=== PATIENT | female | born 1935 | race Caucasian/White ===

== ENCOUNTER 2018-08-11 12:59 | Inpatient (IN) ==
[2018-08-11] MEDS ORDERED: SODIUM CHLORIDE 0.9% 1,000 ML IV STA (13:38)
[2018-08-11] MEDS ORDERED: ONDANSETRON 4 MG/2 ML VIAL IV STA (13:38)
[2018-08-11] MEDS ORDERED: HYDROmorphone 2 MG/1 ML VIAL IV STA (13:38)
[2018-08-11 14:04] LABS: Basophils % 0.3 % (0.0-0.8); Eosinophils # 0.2 10*3/uL (0.0-0.87); Eosinophils % 1.3 % (0.00-10.9); Hematocrit 42.1 VOL% (35.7-47.0); Hemoglobin 13.2 GM/DL (12.0-16.0); Immature Granulocytes % 0.3 %; Immature Granulocytes Absolute 0.04 #; Lymphocytes # 2.3 10*3/uL (1.4-4.0); Lymphocytes % 18.1 % (21.3-54.2); Mean Corpuscular HGB Conc 31.4 GM/DL (32-36); Mean Corpuscular Hemoglobin 28 PG (27-34); Mean Corpuscular Volume 88.4 FL (87-102); Mean Platelet Volume 9.6 FL (9.6-12.0); Monocytes # 1.2 10*3/uL (0.11-0.8); Monocytes % 9.9 % (1.7-12.7); Neutrophils # 8.8 10*3/uL (1.4-7.4); Neutrophils % 70.1 % (38.7-73.9); Platelet Count 396 T/CUMM (130-400); Red Blood Count 4.76 MC/CUMM (3.8-5.5); Red Cell Distribution Width 13.6 % (9.3-17.3); White Blood Count 12.5 T/CUMM (4-12)
[2018-08-11 14:27] LABS: Alanine Aminotransferase 22 U/L (13-56); Albumin 2.7 G/DL (3.4-5.0); Alkaline Phosphatase 128 U/L (45-117); Aspartate Amino Transferase 27 U/L (0-37); Bilirubin,Total < 0.39 MG/DL (0.2-1.0); Blood Urea Nitrogen 14 MG/DL (7-18); Calcium 9.2 MG/DL (8.5-10.1); Glucose 106 MG/DL (74-106); Lactic Acid 1.3 MMOL/L (0.4-2.0); Potassium 4.3 MMOL/L (3.5-5.1); Sodium 136 MMOL/L (136-145); Total Protein 7.3 G/DL (6.4-8.3)
[2018-08-11 14:42] LABS: Apearance,Urine CLEAR (Clear); Bilirubin,Urine Negative (Negative); Blood, Urine Small mg/dL (Negative); Glucose,Urine (UA) Negative (Negative); Ketones,Urine 5 mg/dL (Negative); Mucus,Urine Many /LPF (Occasional); Nitrite,Urine Negative (Negative); Protein,Urine 100 MG/DL; RBC,Urine 5 /HPF (0-4); Squamous Epithelial Cell,Urine Occasional /HPF (0-10); Urine Color Amber (Yellow); Urine Specific Gravity 1.023 (1.001-1.035); WBC,Urine 2 /HPF (0-6)
[2018-08-11] MEDS ORDERED: ACETAMINOPHEN 325 MG TABLET PO PRN (16:31)
[2018-08-11] MEDS ORDERED: ONDANSETRON 4 MG/2 ML VIAL IV PRN (16:31)
[2018-08-11] MEDS ORDERED: ALBUTEROL/IPRATROPIUM 3 ML NEB RESP TX PRN (16:56)
[2018-08-11] MEDS: SODIUM CHLORIDE 0.9% 1,000 ML IV SCH (17:30)
[2018-08-11] MEDS ORDERED: MORPHINE 4 MG/1 ML VIAL IV PRN (17:34)
[2018-08-12] MEDS: SODIUM CHLORIDE 0.9% 1,000 ML IV SCH ×2 (03:29→16:46)
[2018-08-12 05:10] LABS: Basophils % 0.3 % (0.0-0.8); Eosinophils # 0.2 10*3/uL (0.0-0.87); Eosinophils % 1.8 % (0.00-10.9); Hematocrit 37.4 VOL% (35.7-47.0); Hemoglobin 11.4 GM/DL (12.0-16.0); Immature Granulocytes % 0.4 %; Immature Granulocytes Absolute 0.04 #; Lymphocytes # 1.4 10*3/uL (1.4-4.0); Lymphocytes % 13.9 % (21.3-54.2); Mean Corpuscular HGB Conc 30.5 GM/DL (32-36); Mean Corpuscular Hemoglobin 27 PG (27-34); Mean Platelet Volume 9.5 FL (9.6-12.0); Monocytes # 1.2 10*3/uL (0.11-0.8); Monocytes % 11.8 % (1.7-12.7); Neutrophils # 7.2 10*3/uL (1.4-7.4); Neutrophils % 71.8 % (38.7-73.9); Platelet Count 346 T/CUMM (130-400); Red Cell Distribution Width 13.7 % (9.3-17.3)
[2018-08-12 06:09] LABS: Calcium 8.3 MG/DL (8.5-10.1); Osmolality,Calculated 274.7 MOS/KG (273-304); Potassium 4.5 MMOL/L (3.5-5.1); Thyroid Stimulating Hormone 2.59 uIU/ml (0.358-3.74)
[2018-08-12] MEDS ORDERED: RAMIPRIL 5 MG CAPSULE PO SCH (09:00)
[2018-08-12] MEDS: MELOXICAM 7.5 MG TABLET PO SCH (09:23)
[2018-08-12] MEDS: TORSEMIDE 20 MG TABLET PO SCH (09:23)
[2018-08-12] MEDS: ALLOPURINOL 300 MG TABLET PO SCH (09:23)
[2018-08-12] MEDS: LUBIPROSTONE 8 MCG CAPSULE PO SCH (09:23)
[2018-08-12] MEDS: PANTOPRAZOLE 40 MG TABLET PO SCH (09:23)
[2018-08-12] MEDS: MONTELUKAST 10 MG TABLET PO SCH (09:23)
[2018-08-12] MEDS: RAMIPRIL 5 MG CAPSULE PO SCH (09:26)
[2018-08-12] MEDS: PRAVASTATIN 20 MG TABLET PO SCH (20:12)
[2018-08-12] MEDS ORDERED: PRAVASTATIN 20 MG TABLET PO SCH (21:00)
[2018-08-13 05:54] LABS: Basophils % 0.4 % (0.0-0.8); Eosinophils # 0.2 10*3/uL (0.0-0.87); Hematocrit 40.5 VOL% (35.7-47.0); Hemoglobin 12.2 GM/DL (12.0-16.0); Immature Granulocytes % 0.5 %; Immature Granulocytes Absolute 0.06 #; Lymphocytes # 1.9 10*3/uL (1.4-4.0); Lymphocytes % 17.4 % (21.3-54.2); Mean Corpuscular HGB Conc 30.1 GM/DL (32-36); Mean Corpuscular Hemoglobin 27 PG (27-34); Mean Corpuscular Volume 90.6 FL (87-102); Mean Platelet Volume 9.4 FL (9.6-12.0); Monocytes # 1.2 10*3/uL (0.11-0.8); Monocytes % 10.8 % (1.7-12.7); Neutrophils # 7.6 10*3/uL (1.4-7.4); Neutrophils % 68.9 % (38.7-73.9); Platelet Count 370 T/CUMM (130-400); Red Blood Count 4.47 MC/CUMM (3.8-5.5); Red Cell Distribution Width 13.6 % (9.3-17.3)
[2018-08-13 06:08] LABS: Calcium 8.8 MG/DL (8.5-10.1); Osmolality,Calculated 277.5 MOS/KG (273-304); Potassium 4.3 MMOL/L (3.5-5.1)
[2018-08-13] MEDS: PANTOPRAZOLE 40 MG TABLET PO SCH (08:42)
[2018-08-13] MEDS: LUBIPROSTONE 8 MCG CAPSULE PO SCH (08:42)
[2018-08-13] MEDS: RAMIPRIL 5 MG CAPSULE PO SCH (08:42)
[2018-08-13] MEDS: MONTELUKAST 10 MG TABLET PO SCH (08:42)
[2018-08-13] MEDS: ALLOPURINOL 300 MG TABLET PO SCH (08:43)
[2018-08-13] MEDS: MELOXICAM 7.5 MG TABLET PO SCH (08:43)
[2018-08-13] MEDS: TORSEMIDE 20 MG TABLET PO SCH (08:43)
[2018-08-13 09:03] LABS: INR 1.1; PT Patient Result 11.4 SECS
[2018-08-13] MEDS: PRAVASTATIN 20 MG TABLET PO SCH (20:12)
[2018-08-14] MEDS ORDERED: INFLUENZA VIRUS VACCINE 0.5 ML SYRINGE IM ONE (09:00)
[2018-08-14] MEDS: PANTOPRAZOLE 40 MG TABLET PO SCH (09:10)
[2018-08-14] MEDS: MELOXICAM 7.5 MG TABLET PO SCH (09:10)
[2018-08-14] MEDS: MONTELUKAST 10 MG TABLET PO SCH (09:10)
[2018-08-14] MEDS: LUBIPROSTONE 8 MCG CAPSULE PO SCH (09:10)
[2018-08-14] MEDS: ALLOPURINOL 300 MG TABLET PO SCH (09:11)
[2018-08-14] MEDS: TORSEMIDE 20 MG TABLET PO SCH (09:11)
[2018-08-14] MEDS: RAMIPRIL 5 MG CAPSULE PO SCH (09:14)
[2018-08-14 16:56] VITALS: BP 128/88
== END 2018-08-14 18:14 | disposition home health service (06) | DRG 755 ==
LOC: N.ED 12:59 → N.EDINP 16:04 → N.5E 16:19
PROVIDERS: ADMIT Internal Medicine; ATTEND Internal Medicine